=== PATIENT | male | born 1970 | race Caucasian/White ===

== ENCOUNTER → 2020-03-16 | Outpatient (CLI) | payer BC ==
--- NOTE | 2020-03-16 15:18 | CT ---
EXAMINATION TYPE: CT sinus wo con DATE OF EXAM: 03/16/2020 COMPARISON: None HISTORY: Sinus infection and bronchitis x [address] DLP: 400.[address] of the paranasal sinuses was performed in the axial and coronal planes. Bone and soft tissue settings are submitted. The paranasal sinuses demonstrate normal aeration and development. The paranasal sinuses are free of mucosal thickening or air fluid level. The osteal meatal units are patent bilaterally. Nasal septal deviation from left to right. No bony destructive changes are seen within the field of view. IMPRESSION: Nasal septal deviation from left to right. Otherwise unremarkable study.
== END | disposition home or self-care (01) ==
LOC: RADCTMAIN 14:52
PROVIDERS: ATTEND Family Medicine
DX: J34.2 Deviated nasal septum (principal)
CPT/HCPCS: 70486

== ENCOUNTER → 2020-11-30 | Outpatient (CLI) | payer BC ==
--- NOTE | 2020-11-30 11:13 | FL ---
EXAMINATION TYPE: FL barium swallow DATE OF EXAM: 11/30/2020 COMPARISON: None HISTORY: Dysphasia coughing TECHNIQUE: Esophagram is evaluated utilizing double air-contrast technique. FINDINGS: Esophagus dilates to normal caliber has normal contour gastroesophageal junction. Gastroeso phageal junction opens to normal caliber. No intraluminal or extra renal defects are evident. In the horizontal drinking position there is complete stripping the esophageal bolus. No reflux could be qasim cited during this examination. Minimal tertiary contractions may be in the distal esophagus. IMPRESSION: 1. Minimal presbyesophagus may be present. 2. Otherwise normal esophagram.
== END | disposition home or self-care (01) ==
LOC: RADUSWWP 08:29
PROVIDERS: ATTEND Otolaryngology
DX: R13.10 Dysphagia, unspecified (principal)
CPT/HCPCS: 74220

== ENCOUNTER → 2021-06-05 | Outpatient (CLI) | payer BC ==
--- NOTE | 2021-06-05 19:28 | CONS ---
CONSULTATION This is a 51-year-old male patient referred to me for difficulties in maintaining sleep apnea. The patient claims that he does not sleep and deep enough. He is feeling fatigued and tired and sleepy during the day. The patient lives in [place] who works in [facility] and he drives approximately 1 hour back and forth to work. He does not fall asleep while driving. However, he gets tired and after he comes back home he can easily fall asleep. 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 He has been having this problem for quite some time. He has no issues generating sleep and he can fall asleep within 5 minutes. A few hours into sleep he would start waking up at times for gasping for air. He snores. He has been excessively fatigued and sleepy accordingly. He has tried melatonin without much help. No recent weight gain. He does have a history of cleft lip that has been repaired surgically at a very young age. He subsequently had an issues with deviated septum and the patient was having difficulty in via breathing through his right nostril that was corrected surgically by Dr. Jordan. No other major anatomic issues involving the upper airway. His weight has been stable. No history of alcoholism. No history of substance abuse. He prefers to sleep on his side knowing that on his back he would feel worse and he would wake up more frequently. He goes to bed between 9:30 p.m., and 10 p.m., and he gets out of bed at around 4:30 am to an alarm. He has history of depression. No other cardiovascular disease. PAST MEDICAL HISTORY: Depression, cleft lip surgically repaired at a young age. PAST SURGICAL HISTORY: Repair of a cleft lip. Repair of a deviated nasal septum and repair of an inguinal hernia. DRUG ALLERGIES: Not known. OUTPATIENT MEDICATION LIST: Includes melatonin 10 mg at bedtime, Lamictal 150 mg p.o. daily, Wellbutrin 150 mg p.o. daily. SOCIAL HISTORY: Nonsmoker. No history of alcohol and no history of IV drugs. FAMILY HISTORY: His mother has obstructive sleep apnea. REVIEW OF SYSTEMS: Fourteen-point review of system was done. Positive findings are mentioned in history of present illness. PHYSICAL EXAMINATION: BP is 113/72, pulse 69, respirations 18, temperature 97.3. Saturation 94% on room air. Height is 5 feet 10 inches, weight is 205 and BMI is 29.4. Neck size is 16.5 inches. Huffman score is 13. Temperature 97 degrees. GENERAL APPEARANCE: Calm and comfortable. Head is atraumatic normocephalic. NECK: Supple. No JVD. No goiter or neck masses. There is a scar of previous surgery involving a repair of a cleft lip on the right. His nasal septum is in the midline and the patient has adequate patency of both of the nostrils. He has a Mallampati class 4. No macroglossia. Slight overbite. No micrognathia. LUNGS diminished otherwise clear. HEART: Heart sounds are regular rate and rhythm. Normal S1, S2. No S3, S4. No murmurs. ABDOMEN: Soft, nontender. No organomegaly. EXTREMITIES: No edema, cyanosis or clubbing. NEUROLOGIC: Awake and alert. There is no focal neurological deficits. PSYCHIATRICALLY: Negative for anxiety or depression. IMPRESSION: 1. Hypersomnia with suspected obstructive sleep apnea. Huffman score of 13. The patient has a history of a deviated nasal septum repaired surgically. History of cleft lip repaired surgically and currently has a Mallampati class 4 without any any other major anatomic abnormalities. 2. Hypersomnia Huffman score of 13. 3. Loud snoring. 4. Sleep fragmentation. 5. Depression. PLAN: The patient carries a higher suspicion for obstructive sleep apnea. We will proceed with a home sleep study and decide if further treatment if needed. This was essentially depend on the results of the home sleep study. Sleep on the side. Implement good sleep hygiene measures. Extend sleep hours to an average of 7-8 hours if possible. I would suggest going to bed earlier, suggest taking naps if needed. Do not to drive especially when feeling drowsy or sleepy. We will continue to follow and make further recommendations. MMODL / IJN: [id number] /
== END ==
LOC: SLEEP 13:52
PROVIDERS: ATTEND Internal Medicine Critical Care Medicine
DX: G47.10 Hypersomnia, unspecified (principal); F32.9 Major depressive disorder, single episode, unspecified; Z87.730 Personal history of (corrected) cleft lip and palate; Z79.899 Other long term (current) drug therapy
CPT/HCPCS: 99211

== ENCOUNTER → 2021-10-23 | Outpatient (CLI) | payer BC ==
[2021-10-23 16:58] LABS: Basophils # (A) 0.01 X 10*3/uL (0.00-0.10); Basophils % (A) 0.3 %; Eosinophils # (A) 0.03 X 10*3/uL (0.04-0.35); Eosinophils % (A) 0.9 %; HGB 15.4 g/dL (13.0-17.0); Lymphocytes # (A) 0.96 X 10*3/uL (0.90-5.00); Lymphocytes % (A) 28.5 %; MCH 30.2 pg (27.0-32.0); MCHC 33.5 g/dL (32.0-37.0); MCV 90.2 fL (80.0-97.0); Mean Platelet Volume 11.5 fL (9.5-12.2); Monocytes # (A) 0.29 X 10*3/uL (0.20-1.00); Monocytes % (A) 8.6 %; Neutrophils # (A) 2.08 X 10*3/uL (1.80-7.70); Neutrophils % (A) 61.7 %; Platelet Count 138 X 10*3/uL (140-440); RDW 12.9 % (11.5-14.5); WBC 3.37 X 10*3/uL (4.50-10.00)
== END | disposition home or self-care (01) ==
LOC: LABWHC1 09:33
PROVIDERS: ATTEND Surgery
DX: K40.91 Unilateral inguinal hernia, without obstruction or gangrene, recurrent (principal)
CPT/HCPCS: 36415; 85025

== ENCOUNTER 2021-10-31 06:03 | Day surgery (SDC) | payer BC ==
[2021-10-26 11:03] VITALS: BMI 28.7
[~2021-10-31 06:03] MED LIST: ACETAMINOPHEN TAB 500 MG TAB PO PRN; HEPARIN SODIUM,PORCINE/PF 5,000 UNIT/0.5 ML SYRINGE SQ PRN
[2021-10-31] MEDS ORDERED: LACTATED RINGERS 1,000 ML IV ONE (06:58)
[2021-10-31] MEDS ORDERED: ONDANSETRON 4 MG/2 ML VIAL IVP ONE (07:24)
[2021-10-31] MEDS ORDERED: DEXAMETHASONE SOD PHOSPHATE 4 MG/ML 1 ML VIAL IVP ONE (07:25)
[2021-10-31] MEDS ORDERED: MIDAZOLAM 2 MG/2 ML VIAL IVP ONE (07:27)
[2021-10-31] MEDS ORDERED: fentaNYL (PF) 50 MCG/ML 2 ML AMP IVP ONE (07:39)
[2021-10-31] MEDS ORDERED: NEOSTIGMINE 1 MG/ML 10 ML VIAL ONE (08:00)
[2021-10-31] MEDS ORDERED: KETAMINE 10 MG/ML 20 ML VIAL ONE (08:00)
[2021-10-31] MEDS ORDERED: SODIUM CHLORIDE 0.9% (PF) 10 ML VIAL ONE (08:00)
[2021-10-31] MEDS ORDERED: SUCCINYLCHOLINE CHLORIDE 100 MG/5 ML SYR IV ONE (08:00)
[2021-10-31] MEDS ORDERED: LIDOCAINE 1% INJ 10MG/ML (20 ML MDV) ONE (08:00)
[2021-10-31] MEDS ORDERED: ROPIVACAINE 5 MG/ML 30 ML VIAL ONE (08:00)
[2021-10-31] MEDS ORDERED: ROCURONIUM 10 MG/ML (5 ML VIAL) IV ONE (08:00)
[2021-10-31] MEDS ORDERED: fentaNYL (PF) 50 MCG/ML 2 ML AMP ONE (08:00)
[2021-10-31] MEDS ORDERED: GLYCOPYRROLATE 0.2 MG/ML 2 ML VIAL ONE (08:00)
[2021-10-31] MEDS ORDERED: PROPOFOL 10 MG/ML 20 ML VIAL IV ONE (08:00)
[2021-10-31] MEDS ORDERED: BUPIVACAIN-EPI 0.25%-1:200,000 30 ML VIAL SQ ONE ×2 (08:26)
--- NOTE | 2021-10-31 09:12 | P.GSHP ---
History of Present Illness H&P Date: 10/31/21 Chief Complaint: Left inguinal hernia This 51-year-old male has developed a left inguinal hernia. Patient presents today for laparoscopic robotic-assisted repair. Past Medical History Additional Past Medical History / Comment(s): HERNIA History of Any Multi-Drug Resistant Organisms: None Reported Past Surgical History: Hernia Repair Additional Past Surgical History / Comment(s): SEPTOPLASTY Past Anesthesia/Blood Transfusion Reactions: No Reported Reaction Smoking Status: Never smoker - Past Family History Mother Family Medical History: No Reported History Medications and Allergies Home Medications Medication Instructions Recorded Confirmed Type buPROPion [Wellbutrin] 100 mg PO HS 10/26/21 10/26/21 History lamoTRIgine [LaMICtal] 200 mg PO HS 10/26/21 10/26/21 History Allergies Allergy/AdvReac Type Severity Reaction Status Date / Time No Known Allergies Allergy Verified 10/26/21 10:57 Surgical - Exam Vital Signs Temp Pulse Resp BP Pulse Ox 97.6 F 82 18 121/76 97 10/31/21 06:46 10/31/21 06:46 10/31/21 06:46 10/31/21 06:46 10/31/21 06:46 - General well developed, well nourished, no distress - Eyes PERRL - ENT normal pinna - Neck no masses - Respiratory normal expansion - Cardiovascular Rhythm: regular - Abdomen Abdomen: soft, non tender Hernia: inguinal (Left) Assessment and Plan Assessment: Left and one hernia. We'll perform laparoscopic robotic-assisted repair.
--- NOTE | 2021-10-31 09:13 | P.ANPRN ---
Procedure Note - Anesthesia - Nerve Block Performed Bilateral Erector Spinae Single Time Out Performed: Yes ([id number]) Date of Procedure: 10/31/21 Procedure Start Time: :27 Procedure Stop Time: 07:33 Location of Patient: PreOp Indication: Acute Post-Operative Pain, Requested by Surgeon Specifically requested for management of pain by : Efrain Do Sedation Type: Sedate with meaningful contact maintained Preparation: Sterile Prep Position: Supine Catheter: None Needle Types: Pajunk Needle Gauge: 21 Ultrasound used to visualize needle placement: Yes Ultrasound used to observe medication spread: Yes Injectate: 0.5% Ropivacaine (see comment for volume) (15cc + 15cc nacl pf each side) Blood Aspirated: No Pain Paresthesia on Injection Noted: No Resistance on Injection: Normal Image Stored and Saved: Yes Events: Uneventful and Well Tolerated
--- NOTE | 2021-10-31 09:15 | P.OP ---
Date of Procedure: 10/31/21 Preoperative Diagnosis: Left inguinal hernia Postoperative Diagnosis: Left inguinal hernia Procedure(s) Performed: Laparoscopic robotic system repair of left inguinal hernia Anesthesia: BHANU Surgeon: Efrain Do Estimated Blood Loss (ml): 5 Pathology: other (Cord lipoma) Condition: stable Disposition: PACU Description of Procedure: The patient's placed on the operating table in the supine position. The patient received general anesthesia. A transversus abdominis plane block was performed with 1% local Xylocaine. The patient's abdomen was prepped and draped in usual sterile fashion. The skin was anesthetized 1% local Xylocaine at the incision sites. Using an 11 blade a skin incision was made at the umbilicus. The fascia was grasped with a [place] and then the peritoneal cavity was entered with the Veress needle. Position of the Veress needle was confirmed with a positive drop test. After adequate insufflation a 5 mm trocar was placed into the peritoneal cavity. The Laparoscope was placed the peritoneal cavity. And a robotic 8 mm trocar was placed in the right lateral position and then another 8 mm robotic trochars placed in the left lateral position. The original 5 mm trocar was exchanged for a 12 mm trocar. The patient was placed in reverse Trendelenburg and then the patient was docked to the robot. Next the peritoneum over top of the hernia was incised and then using blunt and sharp dissection and electrocautery the hernia sac was dissected free from the floor of the inguinal canal. The cord lipoma was dissected free and sent to pathology The hernia sac was completely reduced into the peritoneal cavity. And then using the Pro cupola worker mesh the hernia was repaired. The peritoneum was then sutured with 20V lock suture. The patient was then undocked the robot. The needle was withdrawn from the peritoneal cavity. The umbilical trocar site was closed with 0 Ethibond suture. The skin was closed interrupted 3-0 Monocryl suture. Dermabond dressing was applied. Patient was sent to recovery in stable condition.
[2021-10-31 09:21] VITALS: TEMP 97.9
[2021-10-31 09:26] VITALS: RESP 16
[2021-10-31] MEDS ORDERED: SODIUM CHLORIDE 0.9% 1,000 ML IV ONE (10:10)
[2021-10-31] MEDS ORDERED: IBUPROFEN 200 MG TAB PO ONE (10:48)
[2021-10-31 11:12] VITALS: BP 132/89; PULSE 85
== END 2021-10-31 11:34 | disposition home or self-care (01) ==
LOC: OR 06:03
PROVIDERS: ATTEND Surgery
DX: K40.90 Unilateral inguinal hernia, without obstruction or gangrene, not specified as recurrent (principal); F32.A Depression, unspecified; Z98.890 Other specified postprocedural states; Z79.899 Other long term (current) drug therapy
CPT/HCPCS: 49650; S2900; 64999; 88304

== ENCOUNTER → 2021-12-04 | Outpatient (CLI) | payer BC ==
--- NOTE | 2021-12-04 18:48 | PN ---
PROGRESS NOTE This is a 51-year-old male patient diagnosed having obstructive sleep apnea. The patient is coming in for a compliancy check regarding recent CPAP therapy that was offered to this patient based on the results of his sleep study. Note that the patient was diagnosed having severe CHAYITO with a baseline AHI of 32, consistent with severe obstructive sleep apnea. Note that he has a history of cleft palate that was surgically repaired at a young age. Based on the results of his polysomnogram, the patient was given a CPAP titration. The patient was titrated to a CPAP pressure of 13 cm of water. I ended up giving him an APAP unit which is set at a pressure minimum of 4, maximum of 8. On today's evaluation, the patient is coming in for a compliance check. He is having difficulties tolerating the treatment. He feels that the pressure is sometimes low and difficult to tolerate, as the patient feels suffocated. At other times he is unable to keep the mask on and he ends up pulling the mask inadvertently in the middle of the night. He was tried on different masks, including a full-face mask, nasal pillows such as AirFit P10, and currently he is using AirFit N20i nasal pillows. I checked the compliance data on his machine over the past 30 days; the patient has achieved more than 4 hours 17% of the time. Average usage has been around 67%. The patient unfortunately has not been able to achieve more than 4 hours, and his average usage is around 2 hours and 40 minutes. While on treatment, the patient's AHI has dropped down to 1.2, indicating successful treatment. Leak is minimal at this point; around 11 L/minute. He is obviously having difficulties tolerating the treatment for now. This is partly related to the low pressure sensation that he is encountering. The average pressure delivered by the machine on an APAP mode is around 5.4 cm of water. PHYSICAL EXAMINATION: VITAL SIGNS: BP is 104/74, pulse 97, respirations 16, weight is 200, temperature 97.9. Highland score is 10. GENERAL APPEARANCE: Calm, comfortable. HEAD: Atraumatic, normocephalic. Neck is supple. No JVD. No goiter or neck masses. He has a repaired cleft palate. LUNGS: Clear to auscultation. Heart sounds are regular rate and rhythm. Normal S1, S2. No S3, S4. No murmurs. ABDOMEN: Soft, nontender. No organomegaly. EXTREMITIES: No edema. No cyanosis or clubbing. Neurologically awake and alert. There is no focal neurological deficit. IMPRESSION: 1. Obstructive sleep apnea, severe; AHI of 32. The patient was given APAP, pressure minimum of 4, maximum of 8. He has difficulties tolerating the treatment because of a low pressure sensation. I reviewed the CPAP titration again, and at pressures of above 9 cm of water, the patient started having central events; and for that reason, I gave him an APAP mode, pressure minimum of 4, maximum of 8. Despite using different mask interfaces and despite an APAP lower pressure mode, the patient continues to have poor tolerability and difficulties maintaining the mask. I noted that while on treatment, the patient is successful and his AHI is down to 1.2. 2. Chronic hypersomnia. 3. History of cleft palate, surgically repaired. 4. History of nasal septal deviation with surgical repair. 5. History of depression. PLAN: 1. I asked the patient to use the machine prior to going to bed in an attempt to desensitize him on the CPAP unit. 2. I asked the patient to continue using the AirFit N20i nasal mask. 3. I changed the patient's CPAP pressure to a fixed pressure of 6 cm of water. This was tried in the sleep center and he seemed to tolerate 6 cm well. At higher pressures, the patient was having difficulties with exhalation, and I noted that at the pressure of 9 cm of water, the patient developed central events. Based on that, I decided to keep him at a pressure of 6 cm of water and give the patient another 30 days of trial on CPAP therapy. 4. If he is unable to tolerate CPAP therapy, he should be considered for Inspire system evaluation and treatment. Will continue to follow. MMODL / IJN: [id number] /
== END ==
LOC: SLEEP 15:08
PROVIDERS: ATTEND Internal Medicine Critical Care Medicine
DX: G47.33 Obstructive sleep apnea (adult) (pediatric) (principal); F32.A Depression, unspecified; Z87.730 Personal history of (corrected) cleft lip and palate; Z87.09 Personal history of other diseases of the respiratory system; Z98.890 Other specified postprocedural states; Z99.89 Dependence on other enabling machines and devices